=== PATIENT | female | born 1970 | race Two or more races ===

== ENCOUNTER 2021-06-06 08:27 | Day surgery (SDC) | payer OTHER, SELFPAY ==
[~2021-06-06] VITALS: Ht 167.6 cm; Wt 68.5 kg
[2021-06-06] MEDS ORDERED: LIDOCAINE 2% 100 MG/5 ML UJET TP ONE ×2 (10:18→10:40)
[2021-06-06] MEDS ORDERED: fentaNYL citrate 0.05 MG/ML VIAL ONE (10:18)
[2021-06-06] MEDS ORDERED: diphenhydrAMINE 50 MG/ML VIAL ONE (10:18)
[2021-06-06] MEDS ORDERED: MIDAZOLAM 2 MG/2 ML VIAL ONE (10:18)
[2021-06-06] MEDS ORDERED: MIDAZOLAM 2 MG/2 ML VIAL IVP ONE (10:40)
[2021-06-06] MEDS ORDERED: fentaNYL citrate 0.05 MG/ML VIAL IVP ONE (10:40)
== END 2021-06-06 11:40 | disposition home or self-care (01) ==
LOC: MDS 08:27 → MMU 08:27 → MDS 11:40
PROVIDERS: ATTEND Internal Medicine Gastroenterology
DX: Z12.11 Encounter for screening for malignant neoplasm of colon (principal); E11.9 Type 2 diabetes mellitus without complications; E78.00 Pure hypercholesterolemia, unspecified; Z79.84 Long term (current) use of oral hypoglycemic drugs; Z79.899 Other long term (current) drug therapy; Z20.822 Contact with and (suspected) exposure to COVID-19
CPT/HCPCS: 45378; 82948; 87426; J2250; J3010; J1200